=== PATIENT | female | born 1990 | race Two or more races ===

== ENCOUNTER 2024-03-11 08:50 | Emergency (ER) | payer OTHER ==
[~2024-03-11] VITALS: Ht 154.9 cm; Wt 70.0 kg
[2024-03-11 09:27] VITALS: TEMP 98.2
[2024-03-11 15:52] VITALS: BP 124/86; PULSE 91; RESP 18
[2024-03-11] MEDS: ACETAMINOPHEN 500 MG TABLET PO ONE (15:59)
== END 2024-03-11 16:03 | disposition home or self-care (01) ==
LOC: EMS 08:51
DX: F10.129 Alcohol abuse with intoxication, unspecified (principal); F14.90 Cocaine use, unspecified, uncomplicated; Y90.9 Presence of alcohol in blood, level not specified
CPT/HCPCS: 99283; 36415; G0480